=== PATIENT | female | born 1985 | race African-American/Black ===

== ENCOUNTER 2016-07-25 18:56 | Emergency (ER) | payer BC, OTHER ==
[~2016-07-25] VITALS: Ht 154.9 cm; Wt 86.6 kg
[~2016-07-25 18:56] MED LIST: DERMOPLAST SPRA56 ML; HYDROCORTISONE 1%; IBUPROFEN 800800 M1 PO; LANOLIN56 GM; PROZAC 20 MG20 M1 OR
[2016-07-25 18:58] VITALS: BP 139/93
[2016-07-25] MEDS ORDERED: VITAMIN D 5050000 I1 PO (19:00)
[2016-07-25] MEDS ORDERED: CLINDAMYCIN PH1 EACH TP (19:00)
[2016-07-25] MEDS ORDERED: ALDACTONE50 MG PO (19:00)
[2016-07-25] MEDS ORDERED: WELLBUTRIN 75 M75 M1 PO (19:00)
[2016-07-25] MEDS ORDERED: DOXYCYCLINE 10100 MG PO (19:01)
[2016-07-25] MEDS ORDERED: TRETINOIN20 G2 TP (19:01)
[2016-07-25 19:20] LABS: URINE BILIRUBIN NEGATIVE (Negative); URINE BLOOD 1+ (Negative); URINE COLOR YELLOW; URINE GLUCOSE-RANDOM* NEGATIVE (Negative); URINE KETONES NEGATIVE (Negative); URINE NITRITE NEGATIVE (Negative); URINE PROTEIN (DIPSTICK) NEGATIVE (Negative); URINE SPECIFIC GRAVITY >= 1.030 (1.003-1.035); URINE UROBILINOGEN 0.2 E.U./dl (0.2-1.0)
[2016-07-25 19:29] LABS: BACTERIA 1-9 Few /HPF (None Seen); CASTS None Seen /LPF (None Seen); CRYSTALS None Seen /LPF (None Seen); SQUAMOUS >10 Many /LPF (0-3); URINE RBC 0-2 Rare /HPF (0-2); URINE WBC 0-5 Rare /HPF (0-5)
[2016-07-25] MEDS ORDERED: TIZANIDINE HCL4 MG PO (19:30)
== END 2016-07-25 19:44 | disposition home or self-care (01) ==
LOC: ER 18:56
PROVIDERS: Nurse Practitioner
DX: S16.1XXA Strain of muscle, fascia and tendon at neck level, initial encounter (principal); V49.40XA Driver injured in collision with unspecified motor vehicles in traffic accident, initial encounter; Y93.I9 Activity, other involving external motion; Y92.410 Unspecified street and highway as the place of occurrence of the external cause; Y99.9 Unspecified external cause status